=== PATIENT | male | born 1955 | race Caucasian/White ===

== ENCOUNTER 2017-01-30 11:23 | Emergency (ER) | payer OTHER ==
[~2017-01-30] VITALS: Ht 172.7 cm; Wt 95.3 kg
[~2017-01-30 11:23] MED LIST: 'PARAFON FORTE500 M1 PO; ALBUTEROL0.09 MG/A2 INH; ALBUTEROL2.5 MG/0.5 INH; ASPIRIN CHILDRE81 MG PO; B12100 MC1 PO; BACTRIM DS 8001 TA1 PO; BENADRYL25 M2 PO; CHOLESTEROL FIG1 CAP PO; CLINDAMYCIN HC300 MG PO; CYCLOBENZAPRINE10 MG PO; DAYPRO600 M1 PO; EPI EZ PEN1 MG/ML IM; FLEXERIL10 MG PO; GLUCOPHAGE1000 MG PO; HYDROCODONE BIT1 T11 PO; INSULIN IJ; LAMICTAL200 MG PO; LANTUS100 U/ML SC; MEDROL DOSEPAK4 MG PO; METFORMIN1000 MG PO; MOTRIN800 MG PO; Motrin,Rufen800 MG PO; NAPROSYN500 MG PO; NAPROXEN500 M1 PO; NEURONTIN600 MG PO; NEURONTIN800 MG PO; NORCO 5-325 TA1 EACH PO; PEPCID20 MG PO; PREDNICOT20 MG PO; PREDNISONE10 MG PO; RANITIDINE HCL150 M1 PO; VICODIN 5/500 505 MG PO; ZITHROMAX Z PA250 MG PO; ZOLOFT100 MG PO; ZOLOFT25 MG PO
[2017-01-30 12:29] LABS: BASO % 0.4 % (0.0-1.0); EOS # 0.1 10*3/uL (0.0-0.4); EOS % 1.6 % (1.0-4.0); HEMOGLOBIN 15.1 g/dl (14.0-18.0); LYMPH # 1.9 10*3/uL (1.3-4.4); LYMPH % 26.7 % (27.0-41.0); MEAN CELL VOLUME 94.5 fl (80.0-94.0); MEAN CORPUSCULAR HGB CONC 32.8 g/dl (33.0-37.0); MEAN PLATELET VOLUME 9.7 fl (9.6-12.3); MONO # 0.6 10*3/uL (0.1-1.0); MONO % 8.3 % (3.0-9.0); NEUT # 4.4 10*3/uL (2.3-7.9); NEUT % 62.7 % (47.0-73.0); PLATELET COUNT AUTOMATED 126 10*3/uL (130-400); RED BLOOD COUNT 4.87 10*6/uL (4.50-5.90); RED CELL DISTRI WIDTH 13.8 % (0-14.5)
[2017-01-30 13:01] LABS: ALBUMIN 3.6 gm/dl (3.1-4.5); ALKALINE PHOSPHATASE 112 U/L (45-117); BILIRUBIN, TOTAL 0.3 mg/dl (0.2-1.0); BUN 31 mg/dl (7-24); CARBON DIOXIDE 27 mmol/L (21-32); CHLORIDE 110 mmol/L (98-107); EST GLOM FILT AFRICAN AMERICAN > 60 ml/min; GLUCOSE 251 mg/dL (65-99); MAGNESIUM 2.2 mg/dL (1.5-2.1); POTASSIUM 3.5 mmol/L (3.5-5.1); SGOT/AST 11 IU/L (3-35); SGPT/ALT 22 U/L (12-78); SODIUM 144 mmol/L (136-145); TOTAL PROTEIN 7.5 gm/dL (6.4-8.2)
[2017-01-30 13:04] LABS: TROPONIN I < 0.015 ng/ml (<0.045)
[2017-01-30] MEDS ORDERED: PREDNISONE10 MG PO (13:12)
== END 2017-01-30 14:18 | disposition left against medical advice (07) ==
LOC: ED 11:23
PROVIDERS: Nurse Practitioner Family
DX: S00.83XA Contusion of other part of head, initial encounter (principal); R55 Syncope and collapse; E11.9 Type 2 diabetes mellitus without complications; G43.909 Migraine, unspecified, not intractable, without status migrainosus; R03.0 Elevated blood-pressure reading, without diagnosis of hypertension; Z91.030 Bee allergy status; Z88.0 Allergy status to penicillin; Z79.899 Other long term (current) drug therapy; Z79.82 Long term (current) use of aspirin; X58.XXXA Exposure to other specified factors, initial encounter; Y93.89 Activity, other specified; Y92.89 Other specified places as the place of occurrence of the external cause; Y99.8 Other external cause status

== ENCOUNTER → 2017-06-15 | Outpatient (CLI) | payer OTHER | END | disposition home or self-care (01) | LOC: MRI 13:43 | DX: R42 Dizziness and giddiness (principal); R51 Headache ==

== ENCOUNTER → 2017-07-10 | Outpatient (CLI) | payer OTHER | LOC: MRI 07:57 | DX: R42 Dizziness and giddiness (principal); R26.89 Other abnormalities of gait and mobility ==

== ENCOUNTER 2017-08-07 14:50 | Emergency (ER) | payer OTHER ==
[~2017-08-07] VITALS: Ht 172.7 cm; Wt 94.3 kg
[2017-08-07 15:32] LABS: BILIRUBIN NEGATIVE (NEGATIVE); BLOOD NEGATIVE (NEGATIVE); CLARITY CLEAR (CLEAR); COLOR YELLOW (YELLOW); GLUCOSE NEGATIVE (NEGATIVE); KETONE NEGATIVE (NEGATIVE); LEUKO ESTERASE NEGATIVE (NEGATIVE); NITRITE NEGATIVE (NEGATIVE); UROBILINOGEN 0.2 E.U./dl (0.2-1.0)
[2017-08-07 15:42] LABS: WBC 0-2 wbc/hpf (0-5)
[2017-08-07] MEDS ORDERED: MEDROL DOSEPAK4 MG PO (16:27)
[2017-08-07] MEDS ORDERED: CYCLOBENZAPRINE5 M3 PO (16:27)
[2017-08-07] MEDS ORDERED: NORCO 5-325 TA1 EACH PO (16:27)
== END 2017-08-07 16:35 | disposition home or self-care (01) ==
LOC: ED 14:50
PROVIDERS: Physician Assistant
DX: S39.012A Strain of muscle, fascia and tendon of lower back, initial encounter (principal); S30.0XXA Contusion of lower back and pelvis, initial encounter; R10.30 Lower abdominal pain, unspecified; Z79.899 Other long term (current) drug therapy; Z79.82 Long term (current) use of aspirin; Z98.890 Other specified postprocedural states; Z91.030 Bee allergy status; Z88.0 Allergy status to penicillin; W10.8XXA Fall (on) (from) other stairs and steps, initial encounter; Y93.89 Activity, other specified; Y92.89 Other specified places as the place of occurrence of the external cause; Y99.9 Unspecified external cause status

== ENCOUNTER 2017-08-26 09:55 | Emergency (ER) | payer OTHER ==
[~2017-08-26] VITALS: Ht 172.7 cm; Wt 94.3 kg
[~2017-08-26 09:55] MED LIST changes: +CYCLOBENZAPRINE5 M3 PO
[2017-08-26] MEDS ORDERED: ZITHROMAX250 MG PO (11:25)
[2017-08-26] MEDS ORDERED: PREDNISONE20 M1 PO (11:25)
[2017-08-26] MEDS ORDERED: ROBITUSSIN DM 105 ML PO (11:25)
== END 2017-08-26 11:51 | disposition home or self-care (01) ==
LOC: ED 09:55
DX: J20.9 Acute bronchitis, unspecified (principal); F17.200 Nicotine dependence, unspecified, uncomplicated; Z91.030 Bee allergy status; Z88.0 Allergy status to penicillin; Z79.82 Long term (current) use of aspirin; Z79.899 Other long term (current) drug therapy

== ENCOUNTER 2017-12-01 13:42 | Emergency (ER) | payer OTHER ==
[~2017-12-01] VITALS: Ht 170.1 cm; Wt 94.8 kg
[~2017-12-01 13:42] MED LIST changes: +PREDNISONE20 M1 PO; +ROBITUSSIN DM 105 ML PO; +ZITHROMAX250 MG PO
[2017-12-01] MEDS ORDERED: NAPROSYN500 MG PO (14:55)
[2017-12-01] MEDS ORDERED: ZITHROMAX250 MG PO (14:55)
== END 2017-12-01 15:03 | disposition home or self-care (01) ==
LOC: ED 13:42
DX: J02.9 Acute pharyngitis, unspecified (principal); G89.29 Other chronic pain; M25.512 Pain in left shoulder; Z98.890 Other specified postprocedural states; Z79.82 Long term (current) use of aspirin; Z79.899 Other long term (current) drug therapy; Z91.030 Bee allergy status; Z88.0 Allergy status to penicillin

== ENCOUNTER 2018-09-12 14:46 | Emergency (ER) | payer OTHER ==
--- NOTE | ~2018-09-12 | EKG ---
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
--- NOTE | ~2018-09-12 | EKG ---
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
[~2018-09-12 14:46] MED LIST changes: +CHLORZOXAZONE500 M2 PO; +KENALOG 0.1%80 GM T
[2018-09-12 15:40] LABS: BASO # 0.1 10*3/uL (0.0-0.1); BASO % 0.8 % (0.0-1.0); EOS # 0.2 10*3/uL (0.0-0.4); EOS % 2.3 % (1.0-4.0); HEMATOCRIT 49.3 % (42.0-52.0); LYMPH % 26.2 % (27.0-41.0); MEAN CELL VOLUME 97.4 fl (80.0-94.0); MEAN CORPUSCULAR HGB 31.6 pg (27.0-31.0); MEAN CORPUSCULAR HGB CONC 32.5 g/dl (33.0-37.0); MEAN PLATELET VOLUME 9.4 fl (9.6-12.3); MONO # 0.5 10*3/uL (0.1-1.0); MONO % 7.1 % (3.0-9.0); NEUT # 4.7 10*3/uL (2.3-7.9); NEUT % 62.9 % (47.0-73.0); PLATELET COUNT AUTOMATED 140 10*3/uL (130-400); RED BLOOD COUNT 5.06 10*6/uL (4.50-5.90); RED CELL DISTRI WIDTH 12.7 % (0-14.5); WHITE BLOOD COUNT 7.5 10*3/uL (4.8-10.8)
[2018-09-12 15:49] LABS: ACT PARTIAL THROMBO TIME 21.8 SECONDS (20.8-31.5); INTERNATIONAL NORM RATIO 0.9 (2.0-3.5)
[2018-09-12 15:56] LABS: ALKALINE PHOSPHATASE 120 U/L (45-117); BUN 31 mg/dl (7-24); CHLORIDE 107 mmol/L (98-107); CREATININE 1.16 mg/dL (0.70-1.30); POTASSIUM 4.5 mmol/L (3.5-5.1); SGOT/AST 12 IU/L (3-35); SGPT/ALT 25 U/L (12-78); SODIUM 142 mmol/L (136-145); TOTAL PROTEIN 7.9 gm/dL (6.4-8.2)
[2018-09-12 16:03] LABS: TROPONIN I < 0.015 ng/ml (<0.045)
[2018-09-12 17:46] LABS: BILIRUBIN NEGATIVE (NEGATIVE); BLOOD NEGATIVE (NEGATIVE); CLARITY CLEAR (CLEAR); COLOR YELLOW (YELLOW); GLUCOSE 2+ (NEGATIVE); KETONE NEGATIVE (NEGATIVE); LEUKO ESTERASE NEGATIVE (NEGATIVE); NITRITE NEGATIVE (NEGATIVE); PH 5.5 (5.0-9.0); UROBILINOGEN 0.2 E.U./dl (0.2-1.0)
[2018-09-12 17:55] LABS: BACTERIA TRACE; RBC 0-2 rbc/hpf (0-2)
[2018-09-12 17:56] LABS: WBC 0-2 wbc/hpf (0-5)
== END 2018-09-12 18:53 | disposition home or self-care (01) ==
LOC: ED 14:46
PROVIDERS: Emergency Medicine
DX: G89.29 Other chronic pain (principal); M25.511 Pain in right shoulder; R07.9 Chest pain, unspecified; L98.9 Disorder of the skin and subcutaneous tissue, unspecified; R42 Dizziness and giddiness; E11.9 Type 2 diabetes mellitus without complications; I10 Essential (primary) hypertension; G43.909 Migraine, unspecified, not intractable, without status migrainosus; E66.9 Obesity, unspecified; F17.210 Nicotine dependence, cigarettes, uncomplicated; Z91.030 Bee allergy status; Z88.0 Allergy status to penicillin; Z79.82 Long term (current) use of aspirin; Z79.899 Other long term (current) drug therapy; Z79.4 Long term (current) use of insulin

== ENCOUNTER 2018-09-16 12:12 | Emergency (ER) | payer OTHER ==
[2018-09-16] MEDS ORDERED: VOLTAREN100 GM T (12:58)
[2018-09-16] MEDS ORDERED: LIDOCAINE PAIN1 EACH T (12:58)
[2018-09-16] MEDS ORDERED: NAPROSYN500 MG PO (12:58)
[2018-09-16] MEDS ORDERED: CYCLOBENZAPRINE10 MG PO (12:58)
[2018-09-16] MEDS ORDERED: TYLENOL325 M1 PO (12:58)
[2018-09-16] MEDS ORDERED: ARTHRITIS PAI42.5 GM T (12:58)
== END 2018-09-16 13:11 | disposition home or self-care (01) ==
LOC: ED 12:12
DX: G89.29 Other chronic pain (principal); M25.511 Pain in right shoulder; M54.2 Cervicalgia; R07.89 Other chest pain; R06.02 Shortness of breath; I10 Essential (primary) hypertension; E78.5 Hyperlipidemia, unspecified; E11.9 Type 2 diabetes mellitus without complications; G43.909 Migraine, unspecified, not intractable, without status migrainosus; M17.11 Unilateral primary osteoarthritis, right knee; Z91.030 Bee allergy status; Z88.0 Allergy status to penicillin; Z79.899 Other long term (current) drug therapy; Z79.82 Long term (current) use of aspirin

== ENCOUNTER → 2018-10-08 | Outpatient (CLI) | payer OTHER ==
[~2018-10-08] MED LIST changes: +ARTHRITIS PAI42.5 GM T; +LIDOCAINE PAIN1 EACH T; +TYLENOL325 M1 PO; +VOLTAREN100 GM T
== END | disposition home or self-care (01) ==
LOC: MRI 13:38
DX: G93.89 Other specified disorders of brain (principal); R41.3 Other amnesia; R26.9 Unspecified abnormalities of gait and mobility; H91.90 Unspecified hearing loss, unspecified ear

== ENCOUNTER 2018-12-22 13:00 | Emergency (ER) | payer OTHER ==
[~2018-12-22] VITALS: Ht 172.7 cm; Wt 93.0 kg
[2018-12-22] MEDS ORDERED: SEPTDS PO (15:26)
== END 2018-12-22 15:35 | disposition home or self-care (01) ==
LOC: ED 13:00
DX: S41.112A Laceration without foreign body of left upper arm, initial encounter (principal); R51 Headache; Z79.82 Long term (current) use of aspirin; Z79.899 Other long term (current) drug therapy; Z91.030 Bee allergy status; Z88.0 Allergy status to penicillin; W18.39XA Other fall on same level, initial encounter; Y93.89 Activity, other specified; Y92.89 Other specified places as the place of occurrence of the external cause; Y99.8 Other external cause status

== ENCOUNTER 2019-04-26 15:39 | Emergency (ER) | payer OTHER ==
[~2019-04-26] VITALS: Ht 172.7 cm; Wt 90.7 kg
[~2019-04-26 15:39] MED LIST changes: +SEPTDS PO
[2019-04-26] MEDS ORDERED: NORCO 5-325 TA1 EACH PO (16:11)
[2019-04-26] MEDS ORDERED: IBU800 MG PO (16:11)
== END 2019-04-26 16:24 | disposition home or self-care (01) ==
LOC: ED 15:39
DX: M25.512 Pain in left shoulder (principal); E78.5 Hyperlipidemia, unspecified; E11.9 Type 2 diabetes mellitus without complications; Z91.030 Bee allergy status; Z88.0 Allergy status to penicillin; Z79.899 Other long term (current) drug therapy; Z79.82 Long term (current) use of aspirin

== ENCOUNTER 2019-06-06 11:57 | Emergency (ER) | payer OTHER ==
[~2019-06-06] VITALS: Ht 172.7 cm
[~2019-06-06 11:57] MED LIST changes: +IBU800 MG PO
[2019-06-06] MEDS ORDERED: ZITHROMAX250 MG PO (14:36)
[2019-06-06] MEDS ORDERED: PREDNISONE50 MG PO (14:36)
[2019-06-06] MEDS ORDERED: TESSALON PERLE100 M1 PO (14:36)
== END 2019-06-06 14:40 | disposition home or self-care (01) ==
LOC: ED 11:57
DX: J20.9 Acute bronchitis, unspecified (principal); F17.200 Nicotine dependence, unspecified, uncomplicated; Z91.030 Bee allergy status; Z88.0 Allergy status to penicillin; Z79.899 Other long term (current) drug therapy; Z79.82 Long term (current) use of aspirin

== ENCOUNTER 2019-06-16 13:12 | Emergency (ER) | payer OTHER ==
[~2019-06-16] VITALS: Wt 92.5 kg
--- NOTE | ~2019-06-16 | EKG ---
[place], [place] ELECTROCARDIOGRAM REPORT NAME: HERNÁN VILLASENOR UNIT #: [id number] ROOM: DOCTOR: GREGOR DRAFT REPORT BIRTHDATE: [birth year] [facility] Test Date: 2019-06-16 Test Time: 14:28:35 Pat Name: HERNÁN VILLASENOR Department: Room: Gender: Director [employer]: : 1955 Requested By: ROB CASTILLO Order Number: [id number] Reading MD: Brandon Dewitt MD Measurements Intervals [place] Rate: 70 P: 44 CA: 157 QRS: 74 QRSD: 104 T: 23 QT: 391 QTc: 422 Interpretive Statements Sinus rhythm Low voltage, precordial leads Probable inferior infarct, old Electronically Signed On 06-17-2019 5:38:47 PDT by Brandon Dewitt MD CM:EKGRPT:ELECTROCARDIOGRAM REPORT [id number] ROB WATSON DRAFT REPORT ROB CASTILLO DO
[~2019-06-16 13:12] MED LIST changes: +PREDNISONE50 MG PO; +TESSALON PERLE100 M1 PO
[2019-06-16 14:17] LABS: BASO # 0.1 10*3/uL (0.0-0.1); BASO % 0.6 % (0.0-1.0); EOS # 0.2 10*3/uL (0.0-0.4); EOS % 1.9 % (1.0-4.0); HEMATOCRIT 48.8 % (42.0-52.0); LYMPH # 2.1 10*3/uL (1.3-4.4); LYMPH % 23.6 % (27.0-41.0); MEAN CELL VOLUME 94.8 fl (80.0-94.0); MEAN CORPUSCULAR HGB 31.1 pg (27.0-31.0); MEAN CORPUSCULAR HGB CONC 32.8 g/dl (33.0-37.0); MEAN PLATELET VOLUME 9.2 fl (9.6-12.3); MONO # 0.5 10*3/uL (0.1-1.0); MONO % 5.7 % (3.0-9.0); NEUT # 6.1 10*3/uL (2.3-7.9); NEUT % 67.6 % (47.0-73.0); PLATELET COUNT AUTOMATED 155 10*3/uL (130-400); RED BLOOD COUNT 5.15 10*6/uL (4.50-5.90); RED CELL DISTRI WIDTH 12.5 % (0-14.5); WHITE BLOOD COUNT 9.1 10*3/uL (4.8-10.8)
[2019-06-16 14:27] LABS: ACT PARTIAL THROMBO TIME 26.9 SECONDS (20.0-32.1); INTERNATIONAL NORM RATIO 0.9 (2.0-3.5)
[2019-06-16 14:32] LABS: ALBUMIN 3.5 gm/dl (3.1-4.5); ALKALINE PHOSPHATASE 117 U/L (45-117); BUN 25 mg/dl (7-24); CHLORIDE 107 mmol/L (98-107); CREATININE 0.97 mg/dL (0.70-1.30); LIPASE 823 U/L (73-393); POTASSIUM 4.3 mmol/L (3.5-5.1); SGOT/AST 10 IU/L (3-35); SGPT/ALT 36 U/L (12-78); SODIUM 138 mmol/L (136-145); TOTAL PROTEIN 7.7 gm/dL (6.4-8.2); TROPONIN I < 0.015 ng/ml (<0.045)
[2019-06-16] MEDS ORDERED: IBUPROFEN600 MG PO (15:32)
== END 2019-06-16 15:41 | disposition home or self-care (01) ==
LOC: ED 13:12
PROVIDERS: Emergency Medicine
DX: S09.90XA Unspecified injury of head, initial encounter (principal); R42 Dizziness and giddiness; E11.9 Type 2 diabetes mellitus without complications; G43.909 Migraine, unspecified, not intractable, without status migrainosus; M17.11 Unilateral primary osteoarthritis, right knee; Z79.899 Other long term (current) drug therapy; Z79.82 Long term (current) use of aspirin; Z91.030 Bee allergy status; Z88.0 Allergy status to penicillin; W18.39XA Other fall on same level, initial encounter; Y93.89 Activity, other specified; Y92.89 Other specified places as the place of occurrence of the external cause; Y99.8 Other external cause status

== ENCOUNTER 2019-10-24 14:26 | Emergency (ER) | payer OTHER ==
[~2019-10-24 14:26] MED LIST changes: +IBUPROFEN600 MG PO
== END 2019-10-24 17:56 | disposition home or self-care (01) ==
LOC: ED 14:26
DX: S40.012A Contusion of left shoulder, initial encounter (principal); S40.011A Contusion of right shoulder, initial encounter; S09.90XA Unspecified injury of head, initial encounter; E78.5 Hyperlipidemia, unspecified; F41.9 Anxiety disorder, unspecified; F32.9 Major depressive disorder, single episode, unspecified; Z91.030 Bee allergy status; Z88.0 Allergy status to penicillin; Z79.899 Other long term (current) drug therapy; Z79.2 Long term (current) use of antibiotics; Z79.4 Long term (current) use of insulin; W31.89XA Contact with other specified machinery, initial encounter; Y93.89 Activity, other specified; Y92.89 Other specified places as the place of occurrence of the external cause; Y99.8 Other external cause status

== ENCOUNTER 2020-02-15 13:36 | Emergency (ER) | payer OTHER ==
[~2020-02-15] VITALS: Ht 172.7 cm; Wt 95.3 kg
[2020-02-15] MEDS ORDERED: CEPHALEXIN500 M1 PO (15:03)
== END 2020-02-15 15:11 | disposition home or self-care (01) ==
LOC: ED 13:36
DX: S41.112A Laceration without foreign body of left upper arm, initial encounter (principal); E11.9 Type 2 diabetes mellitus without complications; E78.5 Hyperlipidemia, unspecified; Z88.0 Allergy status to penicillin; Z91.030 Bee allergy status; Z79.899 Other long term (current) drug therapy; Z79.82 Long term (current) use of aspirin; W45.8XXA Other foreign body or object entering through skin, initial encounter; Y93.89 Activity, other specified; Y92.89 Other specified places as the place of occurrence of the external cause; Y99.8 Other external cause status

== ENCOUNTER → 2020-07-27 | Outpatient (CLI) | payer OTHER ==
[~2020-07-27] MED LIST changes: +CEPHALEXIN500 M1 PO
== END | disposition home or self-care (01) ==
LOC: RAD 11:13
PROVIDERS: ATTEND Nurse Practitioner Family
DX: M17.12 Unilateral primary osteoarthritis, left knee (principal)

== ENCOUNTER 2020-08-31 14:37 | Emergency (ER) | payer OTHER ==
[~2020-08-31] VITALS: Ht 172.7 cm; Wt 93.4 kg
== END 2020-08-31 19:31 | disposition home or self-care (01) ==
LOC: ED 14:37
DX: S29.011A Strain of muscle and tendon of front wall of thorax, initial encounter (principal); Z88.0 Allergy status to penicillin; Z91.030 Bee allergy status; Z79.82 Long term (current) use of aspirin; Z79.899 Other long term (current) drug therapy; X58.XXXA Exposure to other specified factors, initial encounter; Y93.89 Activity, other specified; Y92.89 Other specified places as the place of occurrence of the external cause; Y99.8 Other external cause status

== ENCOUNTER 2020-10-16 15:36 | Emergency (ER) | payer OTHER ==
[~2020-10-16] VITALS: Ht 172.7 cm; Wt 90.7 kg
== END 2020-10-16 18:32 | disposition home or self-care (01) ==
LOC: ED 15:36
DX: S20.20XA Contusion of thorax, unspecified, initial encounter (principal); S09.90XA Unspecified injury of head, initial encounter; E11.9 Type 2 diabetes mellitus without complications; E78.5 Hyperlipidemia, unspecified; F41.9 Anxiety disorder, unspecified; F32.9 Major depressive disorder, single episode, unspecified; Z91.030 Bee allergy status; Z88.0 Allergy status to penicillin; Z79.899 Other long term (current) drug therapy; Z79.82 Long term (current) use of aspirin; W00.2XXA Other fall from one level to another due to ice and snow, initial encounter; Y93.89 Activity, other specified; Y92.89 Other specified places as the place of occurrence of the external cause; Y99.8 Other external cause status

== ENCOUNTER 2020-10-23 10:39 | Emergency (ER) | payer OTHER ==
[~2020-10-23] VITALS: Ht 172.7 cm
[2020-10-23 11:28] LABS: BASO # 0.1 10*3/uL (0.0-0.1); EOS # 0.1 10*3/uL (0.0-0.4); EOS % 2.2 % (1.0-4.0); HEMATOCRIT 47.1 % (42.0-52.0); LYMPH # 1.4 10*3/uL (1.3-4.4); LYMPH % 21.4 % (27.0-41.0); MEAN CELL VOLUME 95.2 fl (80.0-94.0); MEAN CORPUSCULAR HGB 31.5 pg (27.0-31.0); MEAN CORPUSCULAR HGB CONC 33.1 g/dl (33.0-37.0); MEAN PLATELET VOLUME 9.6 fl (9.6-12.3); MONO # 0.5 10*3/uL (0.1-1.0); MONO % 7.3 % (3.0-9.0); NEUT # 4.3 10*3/uL (2.3-7.9); NEUT % 67.6 % (47.0-73.0); PLATELET COUNT AUTOMATED 132 10*3/uL (130-400); RED BLOOD COUNT 4.95 10*6/uL (4.50-5.90); RED CELL DISTRI WIDTH 12.6 % (0-14.5); WHITE BLOOD COUNT 6.3 10*3/uL (4.8-10.8)
[2020-10-23 11:38] LABS: ACT PARTIAL THROMBO TIME 25.4 SECONDS (20.0-32.1)
[2020-10-23 11:48] LABS: ALBUMIN 3.7 gm/dl (3.1-4.5); ALKALINE PHOSPHATASE 101 U/L (45-117); BUN 20 mg/dl (7-24); CHLORIDE 110 mmol/L (98-107); CREATININE 0.94 mg/dL (0.70-1.30); LIPASE 607 U/L (73-393); SGOT/AST 9 IU/L (3-35); SGPT/ALT 20 U/L (12-78); SODIUM 140 mmol/L (136-145); TOTAL PROTEIN 7.2 gm/dL (6.4-8.2)
[2020-10-23 11:49] LABS: TROPONIN I < 0.015 ng/ml (<0.045)
[2020-10-23] MEDS ORDERED: PERCOCET 5-3251 EACH PO (14:38)
== END 2020-10-23 14:42 | disposition home or self-care (01) ==
LOC: ED 10:39
PROVIDERS: Emergency Medicine
DX: S22.31XA Fracture of one rib, right side, initial encounter for closed fracture (principal); E11.9 Type 2 diabetes mellitus without complications; E78.5 Hyperlipidemia, unspecified; F41.9 Anxiety disorder, unspecified; F32.9 Major depressive disorder, single episode, unspecified; F17.200 Nicotine dependence, unspecified, uncomplicated; Z91.030 Bee allergy status; Z88.0 Allergy status to penicillin; Z79.899 Other long term (current) drug therapy; Z79.82 Long term (current) use of aspirin; W00.0XXA Fall on same level due to ice and snow, initial encounter; Y93.89 Activity, other specified; Y92.89 Other specified places as the place of occurrence of the external cause; Y99.8 Other external cause status

== ENCOUNTER 2020-11-29 14:58 | Emergency (ER) | payer OTHER ==
[~2020-11-29] VITALS: Ht 172.7 cm; Wt 93.0 kg
[~2020-11-29 14:58] MED LIST changes: +PERCOCET 5-3251 EACH PO
[2020-11-29] MEDS ORDERED: HYDROCODONE-AC1 EAC1 PO (15:38)
[2020-11-29] MEDS ORDERED: CLINDAMYCIN HC300 MG PO (15:38)
== END 2020-11-29 16:00 | disposition home or self-care (01) ==
LOC: ED 14:58
DX: K04.7 Periapical abscess without sinus (principal); F41.9 Anxiety disorder, unspecified; F17.200 Nicotine dependence, unspecified, uncomplicated; Z88.0 Allergy status to penicillin; Z79.899 Other long term (current) drug therapy; Z79.82 Long term (current) use of aspirin

== ENCOUNTER 2020-12-04 18:01 | Emergency (ER) | payer OTHER ==
[~2020-12-04 18:01] MED LIST changes: +HYDROCODONE-AC1 EAC1 PO
== END 2020-12-04 21:55 | disposition home or self-care (01) ==
LOC: ED 18:01
DX: S61.412A Laceration without foreign body of left hand, initial encounter (principal); E11.9 Type 2 diabetes mellitus without complications; E78.5 Hyperlipidemia, unspecified; F32.9 Major depressive disorder, single episode, unspecified; F41.9 Anxiety disorder, unspecified; Z88.0 Allergy status to penicillin; Z79.899 Other long term (current) drug therapy; Z79.82 Long term (current) use of aspirin; Z79.4 Long term (current) use of insulin; Z98.890 Other specified postprocedural states; W26.8XXA Contact with other sharp object(s), not elsewhere classified, initial encounter; Y93.89 Activity, other specified; Y92.89 Other specified places as the place of occurrence of the external cause; Y99.8 Other external cause status

== ENCOUNTER 2021-05-16 09:44 | Emergency (ER) | payer OTHER | END 2021-05-16 10:02 | disposition left against medical advice (07) | LOC: ED 09:44 | DX: M25.519 Pain in unspecified shoulder (principal); Z53.21 Procedure and treatment not carried out due to patient leaving prior to being seen by health care provider ==

== ENCOUNTER 2021-08-07 10:38 | Emergency (ER) | payer OTHER ==
[~2021-08-07] VITALS: Ht 172.7 cm; Wt 93.0 kg
[2021-08-07] MEDS ORDERED: VIBRA-TAB100 MG PO (11:53)
== END 2021-08-07 11:56 | disposition home or self-care (01) ==
LOC: ED 10:38
DX: J20.9 Acute bronchitis, unspecified (principal); Z88.0 Allergy status to penicillin; Z79.899 Other long term (current) drug therapy; Z79.82 Long term (current) use of aspirin

== ENCOUNTER 2021-08-30 10:29 | Emergency (ER) | payer OTHER ==
[~2021-08-30] VITALS: Ht 172.7 cm; Wt 90.7 kg
[~2021-08-30 10:29] MED LIST changes: +VIBRA-TAB100 MG PO
[2021-08-30 11:44] LABS: BASO % 0.3 % (0.0-1.0); EOS # 0.1 10*3/uL (0.0-0.4); EOS % 0.9 % (1.0-4.0); HEMATOCRIT 47.4 % (42.0-52.0); LYMPH # 1.8 10*3/uL (1.3-4.4); LYMPH % 17.3 % (27.0-41.0); MEAN CELL VOLUME 95.6 fl (80.0-94.0); MEAN CORPUSCULAR HGB 31.5 pg (27.0-31.0); MEAN CORPUSCULAR HGB CONC 32.9 g/dl (33.0-37.0); MEAN PLATELET VOLUME 9.8 fl (9.6-12.3); MONO # 0.8 10*3/uL (0.1-1.0); MONO % 7.7 % (3.0-9.0); NEUT # 7.8 10*3/uL (2.3-7.9); NEUT % 73.5 % (47.0-73.0); PLATELET COUNT AUTOMATED 106 10*3/uL (130-400); RED BLOOD COUNT 4.96 10*6/uL (4.50-5.90); RED CELL DISTRI WIDTH 12.6 % (0-14.5); WHITE BLOOD COUNT 10.6 10*3/uL (4.8-10.8)
[2021-08-30 11:56] LABS: BILIRUBIN Negative (Negative); BLOOD Negative (Negative); CLARITY Clear (Clear); COLOR Dark Yellow (Yellow); GLUCOSE 2+ (Negative); KETONE Trace (Negative); LEUKO ESTERASE Negative (Negative); NITRITE Negative (Negative); SPECIFIC GRAVITY >= 1.030 (1.001-1.030)
[2021-08-30 12:00] LABS: BACTERIA TRACE; EPITHELIAL CELLS 0-2; MUCOUS 2+; WBC 0-2 wbc/hpf (0-5)
[2021-08-30 12:01] LABS: ALBUMIN 3.3 gm/dl (3.1-4.5); ALKALINE PHOSPHATASE 89 U/L (45-117); BUN 23 mg/dl (7-24); CHLORIDE 110 mmol/L (98-107); CREATININE 0.97 mg/dL (0.70-1.30); LIPASE 393 U/L (73-393); SGOT/AST 11 IU/L (3-35); SGPT/ALT 23 U/L (12-78); SODIUM 140 mmol/L (136-145)
[2021-08-30] MEDS ORDERED: CIPRO500 MG PO (14:59)
[2021-08-30] MEDS ORDERED: METRONIDAZOLE500 M1 PO (14:59)
== END 2021-08-30 15:29 | disposition home or self-care (01) ==
LOC: ED 10:29
PROVIDERS: Physician Assistant
DX: K57.32 Diverticulitis of large intestine without perforation or abscess without bleeding (principal); R19.7 Diarrhea, unspecified; Z91.030 Bee allergy status; Z88.0 Allergy status to penicillin; Z79.899 Other long term (current) drug therapy; Z79.2 Long term (current) use of antibiotics; Z79.82 Long term (current) use of aspirin; Z98.890 Other specified postprocedural states

== ENCOUNTER 2021-12-11 09:51 | Emergency (ER) | payer OTHER ==
[~2021-12-11 09:51] MED LIST changes: +CIPRO500 MG PO; +METRONIDAZOLE500 M1 PO
== END 2021-12-11 12:12 | disposition left against medical advice (07) ==
LOC: ED 09:51
DX: R05.9 Cough, unspecified (principal); Z53.21 Procedure and treatment not carried out due to patient leaving prior to being seen by health care provider

== ENCOUNTER 2023-02-22 11:02 | Emergency (ER) | payer MEDICARE ==
[~2023-02-22] VITALS: Ht 172.7 cm; Wt 91.4 kg
[~2023-02-22 11:02] MED LIST changes: -INSULIN IJ; +INSULIN SC
[2023-02-22 11:31] LABS: BASO # 0.1 10*3/uL (0.0-0.1); BASO % 0.7 % (0.0-1.0); EOS # 0.1 10*3/uL (0.0-0.4); EOS % 1.3 % (1.0-4.0); HEMATOCRIT 47.3 % (42.0-52.0); LYMPH # 1.6 10*3/uL (1.3-4.4); LYMPH % 22.9 % (27.0-41.0); MEAN CELL VOLUME 104.9 fl (80.0-94.0); MEAN CORPUSCULAR HGB 33.5 pg (27.0-31.0); MEAN CORPUSCULAR HGB CONC 31.9 g/dl (33.0-37.0); MEAN PLATELET VOLUME 10.4 fl (9.6-12.3); MONO # 0.5 10*3/uL (0.1-1.0); MONO % 6.6 % (3.0-9.0); NEUT # 4.9 10*3/uL (2.3-7.9); NEUT % 68.1 % (47.0-73.0); PLATELET COUNT AUTOMATED 135 10*3/uL (130-400); RED BLOOD COUNT 4.51 10*6/uL (4.50-5.90); RED CELL DISTRI WIDTH 12.8 % (0-14.5); WHITE BLOOD COUNT 7.2 10*3/uL (4.8-10.8)
[2023-02-22] MEDS ORDERED: METFORMIN HYD1000 MG PO (11:49)
[2023-02-22] MEDS ORDERED: MULTIPLE VITAM1 EAC2 PO (11:50)
[2023-02-22] MEDS ORDERED: CRESTOR5 M1 PO (11:50)
[2023-02-22 11:51] LABS: ACT PARTIAL THROMBO TIME 25.1 SECONDS (20.0-32.1)
[2023-02-22 11:54] LABS: ALKALINE PHOSPHATASE 75 U/L (46-116); BUN 11 mg/dl (9-23); CHLORIDE 109 mmol/L (98-107); LIPASE 118 U/L (12-53); POTASSIUM 3.9 mmol/L (3.4-5.1); SGPT/ALT 18 U/L (10-49)
[2023-02-22 12:01] LABS: BILIRUBIN Negative (Negative); BLOOD Negative (Negative); CLARITY Clear (Clear); COLOR Yellow (Yellow); GLUCOSE 2+ (Negative); KETONE Negative (Negative); LEUKO ESTERASE Negative (Negative); NITRITE Negative (Negative); SPECIFIC GRAVITY 1.015 (1.001-1.030); UROBILINOGEN 0.2 E.U./dl (0.0-1.0)
[2023-02-22 12:13] LABS: BACTERIA TRACE; EPITHELIAL CELLS 0-2; MUCOUS TRACE; WBC 0-2 wbc/hpf (0-5)
[2023-02-22] MEDS ORDERED: MECLIZINE HCL25 M2 PO (12:20)
== END 2023-02-22 13:38 | disposition home or self-care (01) ==
LOC: ED 11:02
PROVIDERS: Emergency Medicine
DX: E86.0 Dehydration (principal); R42 Dizziness and giddiness; E11.9 Type 2 diabetes mellitus without complications; E78.5 Hyperlipidemia, unspecified; F41.9 Anxiety disorder, unspecified; F32.A Depression, unspecified; Z91.030 Bee allergy status; Z88.0 Allergy status to penicillin; Z98.890 Other specified postprocedural states

== ENCOUNTER → 2023-04-29 | Outpatient (CLI) | payer MEDICARE ==
[~2023-04-29] MED LIST changes: +CRESTOR5 M1 PO; +MECLIZINE HCL25 M2 PO; +METFORMIN HYD1000 MG PO; +MULTIPLE VITAM1 EAC2 PO
== END | disposition home or self-care (01) ==
LOC: RAD 09:58
PROVIDERS: ATTEND Physician Assistant
DX: M79.602 Pain in left arm (principal)

== ENCOUNTER → 2024-03-31 | Outpatient (CLI) | payer OTHER | END | disposition home or self-care (01) | LOC: RAD 11:47 | PROVIDERS: ATTEND Nurse Practitioner | DX: M54.2 Cervicalgia (principal) ==

== ENCOUNTER 2025-03-24 11:07 | Emergency (ER) | payer OTHER ==
[2025-03-24] MEDS ORDERED: Acetaminophen/Oxycodone 5 MG/325 MG TABLET PO ONE (11:20)
[2025-03-24] MEDS ORDERED: ANTIVERT25 M2 PO (14:17)
== END 2025-03-24 14:28 | disposition home or self-care (01) ==
LOC: ED 11:07
DX: S09.90XA Unspecified injury of head, initial encounter (principal); E11.9 Type 2 diabetes mellitus without complications; F32.A Depression, unspecified; F41.9 Anxiety disorder, unspecified; Z79.899 Other long term (current) drug therapy; Z88.0 Allergy status to penicillin; Z91.030 Bee allergy status; W11.XXXA Fall on and from ladder, initial encounter; Y93.89 Activity, other specified; Y92.89 Other specified places as the place of occurrence of the external cause; Y99.8 Other external cause status

== ENCOUNTER → 2025-07-24 | Outpatient (CLI) | payer OTHER ==
[~2025-07-24] MED LIST changes: +ANTIVERT25 M2 PO
== END | disposition home or self-care (01) ==
LOC: MRI 13:46
PROVIDERS: ATTEND Anesthesiology
DX: M50.11 Cervical disc disorder with radiculopathy, high cervical region (principal); M48.02 Spinal stenosis, cervical region; M25.78 Osteophyte, vertebrae; M51.16 Intervertebral disc disorders with radiculopathy, lumbar region; M47.22 Other spondylosis with radiculopathy, cervical region; M47.27 Other spondylosis with radiculopathy, lumbosacral region; M51.15 Intervertebral disc disorders with radiculopathy, thoracolumbar region; M48.061 Spinal stenosis, lumbar region without neurogenic claudication